=== PATIENT | female | born 1990 | race Two or more races ===

== ENCOUNTER 2018-07-10 08:29 | Emergency (ER) | payer OTHER ==
[~2018-07-10] VITALS: Ht 165.1 cm; Wt 102.5 kg
[2018-07-10 08:34] VITALS: Ht 165.1 cm; Wt 102.5 kg
[2018-07-10 09:20] VITALS: BP 123/74
== END 2018-07-10 09:21 | disposition home or self-care (01) ==
LOC: ED 08:29
DX: M54.5 Low back pain (principal); J45.909 Unspecified asthma, uncomplicated; Z90.49 Acquired absence of other specified parts of digestive tract; Z87.39 Personal history of other diseases of the musculoskeletal system and connective tissue

== ENCOUNTER 2019-04-29 21:35 | Emergency (ER) | payer OTHER ==
[~2019-04-29] VITALS: Ht 165.1 cm; Wt 103.0 kg
[2019-04-29 21:48] VITALS: Ht 165.1 cm; Wt 103.0 kg
[2019-04-30 00:10] VITALS: BP 119/76
== END 2019-04-30 00:10 | disposition home or self-care (01) ==
LOC: ED 21:35
DX: J45.909 Unspecified asthma, uncomplicated (principal)
CPT/HCPCS: Q0092

== ENCOUNTER 2019-05-07 17:24 | Emergency (ER) | payer OTHER ==
[~2019-05-07] VITALS: Ht 165.1 cm; Wt 101.2 kg
[2019-05-07 17:43] VITALS: Ht 165.1 cm; Wt 101.2 kg
[2019-05-07 19:54] VITALS: BP 131/73
== END 2019-05-07 19:54 | disposition home or self-care (01) ==
LOC: ED 17:24
DX: G44.209 Tension-type headache, unspecified, not intractable (principal); J45.909 Unspecified asthma, uncomplicated; Z90.49 Acquired absence of other specified parts of digestive tract
CPT/HCPCS: J1885

== ENCOUNTER 2019-10-25 09:10 | Emergency (ER) | payer OTHER ==
[~2019-10-25] VITALS: Ht 165.1 cm; Wt 99.8 kg
[2019-10-25 09:21] VITALS: Ht 165.1 cm; Wt 99.8 kg
[2019-10-25 10:59] VITALS: BP 128/83
== END 2019-10-25 10:59 | disposition home or self-care (01) ==
LOC: ED 09:10
DX: R05 Cough (principal); J45.909 Unspecified asthma, uncomplicated; Z13.89 Encounter for screening for other disorder